=== PATIENT | female | born 1995 | race Caucasian/White ===

== ENCOUNTER 2024-10-15 07:30 | Inpatient (IN) ==
--- NOTE | 2024-10-04 09:14 | Anesthesiology Consultation ---
Date of Service October 04, 2024 Assessment & Plan (1) Encounter for pre-operative examination: - Per counter checker on 10/04/24: No known infectious disease contacts, current infectious disease symptoms in past 10 days or COVID positive test result in the past 30 days. Chart Review Chart Review: entry processor initiated History Surgery Operation Date: 10/15/24 07:30 Proposed Procedures p Section (Delivery of Baby Through Abdominal Incision) - Lynne Ogden MD, FACOG Height/Weight Height: 5 ft 5 in Weight: 76.204 kg Allergies Allergy/AdvReac Type Severity Reaction Status Date / Time Penicillins Allergy Intermediate Rash Verified 10/04/24 08:53 latex Allergy Mild RASH Verified 10/04/24 08:53 Medications Home Medications Medication Instructions Recorded Confirmed Last Taken prenat.vits,phi,jnk-hxoy-ysvqu 1 tab PO HS 11/08/21 10/04/24 04/08/23 acetone (urine) test (Ketone Urine #50 ea 08/10/24 09/28/24 Unknown Test strips) blood sugar diagnostic (OneTouch #150 ea 08/10/24 09/28/24 Unknown Verio test strips) blood-glucose meter (OneTouch #1 ea 08/10/24 09/28/24 Unknown Verio Reflect Meter) lancets 33 gauge (OneTouch Delica #150 ea 08/10/24 09/28/24 Unknown Plus Lancet) Past Medical History Medical History (Updated 10/04/24 @ 09:13 by Tati Connor PA-C) GDM (gestational diabetes mellitus) no meds, reports bs check 4 times per day - runs 100-120 Past Family History Family History Grandmother (Maternal) Breast cancer Grandfather (Paternal) Myocardial infarction Grandfather (Maternal) Alzheimer disease Father Heart aneurysm Other Coronary heart disease Past Surgical History Surgical History S/P section (03/2023) S/P wisdom tooth extraction Social History Smoking Status: Never smoker Do You Dip or Chew Tobacco: No Hx Alcohol Use: No Hx Substance Use: No substance use type: does not use
[2024-10-15] MEDS ORDERED: CALCIUM CARBONATE 500 MG CHEWABLE TAB PO PRN (08:45)
[2024-10-15] MEDS ORDERED: LIDOCAINE 1% LOCAL 20 ML VIAL INFIL PRN (08:45)
[2024-10-15] MEDS ORDERED: OXYTOCIN 30 UNITS/NSS 30 UNITS/500 ML BAG IV PRN ×2 (08:45→20:35)
[2024-10-15] MEDS: LACTATED RINGER'S 1,000 ML IV PRN (09:00)
[2024-10-15 09:09] LABS: Hematocrit (blood only) 34.8 % (37.0-47.0); Hemoglobin 11.5 g/dl (12.0-16.0); Mean Corpuscular Hemoglobin 29.2 pg (25.0-34.0); Mean Corpuscular Volume 88.3 fL (80.0-100.0); Mean Platelet Volume 12.2 fL (9.4-12.4); Platelet Count 157 K/uL (130-400); RDW Standard Deviation 45.4 fL (36.4-46.3); Red Blood Count 3.94 M/uL (4.20-5.40); White Blood Count 9.39 K/ul (4.8-10.8)
--- NOTE | 2024-10-15 09:20 | History & Physical Report ---
Date of Service October 15, 2024 Assessment & Plan (1) Gestational diabetes mellitus (GDM) affecting , antepartum: (2) Short interval between pregnancies affecting , antepartum: (3) Previous delivery affecting : (4) Encounter for supervision of normal intrauterine in multigravida, antepartum: Plan Pt is comfortable - Plan for , per pt request - Epidural if pt requests, anesthesiology following T&S ordered placed and consent signed. Admission and Anticipated Discharge Date Admission Date: October 15, 2024 History of Present Illness Chief Complaint: Induction Primary Care Provider: Ally Lozano MD Violeta is a 29 y/o female currently at40/6 WGA with an GILLIAN 10/09/24 as determined by LMP who is here for induction, . Her was complicated by GDM, diet controlled. Hep B non-immune. No reported contractions; regular movement; no fluid loss; no bloody show Had regular appointments with OB. OB Labs: Blood Type O Positive 03/08/24 Antibody Screen NEGATIVE 03/08/24 Hgb 12.4 g/dl (12.0-16.0) 07/20/24 Hct 37.3 % (37.0-47.0) 07/20/24 MCV 89.3 fL (80.0-100.0) 03/08/24 Plt Count 205 K/uL (130-400) 03/08/24 Rubella IgG Antibody Immune (Immune) 03/08/24 RPR Nonreactive (Nonreactive) 09/24/22 Treponema pallidum Ab Negative (Negative) 07/20/24 Hep Bs Antigen Negative (Negative) 03/08/24 Hep Bs Antigen NON-REACTIVE (NON-REACTIVE) 09/24/22 Hepatitis C Antibody Negative (Negative) 03/08/24 Hepatitis C Ab (EIA) NON-REACTIVE (NON-REACTIVE) 09/24/22 HIV 1&2 Ab/P24 Ag 4thGn Negative (Negative) 03/08/24 HIV (1&2) Ag & Ab Conf NON-REACTIVE (NON-REACTIVE) 09/24/22 Glucose 1 Hr 50 gm 160 mg/dl (70-130) H 07/20/24 OB Optional Labs: Chlamydia trachomatis RNA Not Detected (NotDetected) 03/08/24 Neisseria gonorrhoeae RNA Not Detected (NotDetected) 03/08/24 Labs Reviewed: Declines cf/sma/cfdna/quad screen--mln H.5 (today) Hct: 34.8 (today) WBC: 9.39 (today) Plt: 157 (today) GBS: neg Allergies Allergy/AdvReac Type Severity Reaction Status Date / Time Penicillins Allergy Intermediate Rash Verified 10/11/24 09:53 latex Allergy Mild RASH Verified 10/11/24 09:53 nickel AdvReac Redness of Verified 10/15/24 08:39 Skin Home Medications Medication Instructions Recorded Confirmed Type prenat.vits,phi,mwo-ajvj-kueoh 1 tab PO HS 11/08/21 10/15/24 History acetone (urine) test (Ketone Urine #50 ea 08/10/24 10/11/24 Rx Test strips) blood sugar diagnostic (OneTouch #150 ea 08/10/24 10/11/24 Rx Verio test strips) blood-glucose meter (OneTouch #1 ea 08/10/24 10/11/24 Rx Verio Reflect Meter) lancets 33 gauge (OneTouch Delica #150 ea 08/10/24 10/11/24 Rx Plus Lancet) Patient History Medical History GDM (gestational diabetes mellitus) no meds, reports bs check 4 times per day - runs 100-120 Surgical History S/P section (03/2023) S/P wisdom tooth extraction Family History Grandmother (Maternal) Breast cancer Grandfather (Paternal) Myocardial infarction Grandfather (Maternal) Alzheimer disease Father Heart aneurysm Other Coronary heart disease Social History Smoking Status: Never smoker Second Hand Exposure: No; Do You Dip or Chew Tobacco: No; Tobacco Cessation Education Requested by Patient: No Hx Alcohol Use: No Hx Substance Use: No Preferred Language: Hebrew Communication Ability: Effective Visual Impairment: Limited Anesthesiology Physician Required: No Beliefs That Will Affect Care: None marital status: marital status details: Levi (29) [phone] Current Living Situation: Spouse and Family Current Living Situation Comment: - Levi, 1 1/2 year old son Tao; 2 dogs and 1 cat current occupational status: employed 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 Denies breast pain. Denies dysuria. Denies headache or changes in vision. Physical Exam Physical Exam: General: Alert, oriented. No acute distress. Cardiac: Regular rate and rhythm, no murmurs/rubs/gallops. Respiratory: Clear to auscultation bilaterally a/p, no wheezes/rales/rhonchi. No increased work of breathing. Symmetrical chest rise. No respiratory distress. Abdomen: Gravid; moderately variable FHTs; Position: vertex Pelvic: Dilation 4-5cm; Effacement 80%; Station -[address] Hooker Lower Extremities: No lower extremity edema or swelling. No deep calf pain. Nori's negative bilaterally Results & Data Vital Signs (Past 12 Hours) Vital Signs Temp Pulse Resp BP 10/15/24 09:07 78 102/59 L 10/15/24 09:06 16 10/15/24 09:06 36.5 C 78 16 102/59 L 10/15/24 08:13 36.6 C 126 H 18 118/70 10/15/24 07:54 126 H 118/70 Code Status & VTE Plan VTE Prophylaxis Plan VTE Prophylaxis will be ordered: No Monitoring External Monitor External FHT and external uterine monitors used; Category 1 tracing; moderate FHT variability. Tocodynamometer Intermittent contractions Supervising Physician Co-Signing Physician Notes Resident Physician Supervision Note: I interviewed and examined the patient. Discussed with Dr. Mcmillan and agree with findings and plan as documented in the note. Any exceptions or clarifications are listed here: [None] Documented By: Leonor Rios MD, FACOG Resident Activity Tracking Resident Involvement: Resident Care Provided Care Provided: Adult Hospital Medicine
[2024-10-15] MEDS: OXYTOCIN 30 UNITS/NSS 30 UNITS/500 ML BAG IV PRN (13:48)
--- NOTE | 2024-10-15 14:39 | Labor Progress Brief Note ---
Date of Service October 15, 2024 Subjective Reason For Note: Routine Evaluation contractions getting more painful but still only 7-10 minutes apart cervix exam- 5-6cm/100/-2 FHT category 1 will start pitocin augmentation to get a better contraction pattern Assessment & Plan Admission and Anticipated Discharge Date Admission Date: October 15, 2024 Results & Data Vital Signs (Past 12 Hours) Vital Signs Temp Pulse Resp BP 10/15/24 14:10 85 126/89 10/15/24 14:00 18 10/15/24 14:00 18 10/15/24 13:30 18 10/15/24 13:30 18 10/15/24 13:19 78 101/69 10/15/24 13:17 16 10/15/24 13:17 97.7 F 78 16 101/69 10/15/24 12:17 16 10/15/24 12:17 97.5 F L 66 16 95/52 L 10/15/24 10:06 82 10/15/24 10:06 102/63 10/15/24 10:06 98.2 F 82 18 102/63 10/15/24 09:07 78 102/59 L 10/15/24 09:06 16 10/15/24 09:06 97.7 F 78 16 102/59 L 10/15/24 08:13 97.9 F 126 H 18 118/70 10/15/24 07:54 126 H 118/70 Coding Level of Care Code 72179 SUB INP/OBS CARE 08/11MIN
[2024-10-15] MEDS ORDERED: LIDOCAINE 2% MPF LOCAL 5 ML VIAL EPI PRN (16:04)
[2024-10-15] MEDS ORDERED: NALOXONE HCL 0.4 MG/1 ML VIAL/CARP IV PRN (16:04)
[2024-10-15] MEDS ORDERED: BUPIVACAINE 0.25% PF 30 ML VIAL EPI PRN (16:04)
[2024-10-15] MEDS ORDERED: ROPIVACAINE 0.5% PF 5 MG/ML 20 ML VIAL EPI PRN (16:04)
[2024-10-15] MEDS ORDERED: fentaNYL citrate PF 100 MCG/2 ML VIAL EPI PRN (16:04)
[2024-10-15] MEDS ORDERED: SODIUM CHLORIDE 0.9% PF INJ 10 ML VIAL EPI PRN (16:04)
[2024-10-15] MEDS ORDERED: fentANYL 2 MCG/ML BUPIVacaine 0.125%-NSS 100ML BAG EPI PRN (16:04)
[2024-10-15] MEDS ORDERED: diphenhydrAMINE 50 MG/ML VIAL IV PRN (16:04)
[2024-10-15] MEDS ORDERED: ePHEDrine sulfate 50 MG/ML AMP IV PRN (16:04)
[2024-10-15] MEDS ORDERED: NALBUPHINE HCL INJ 10 MG/ML AMP IV PRN (16:04)
[2024-10-15] MEDS ORDERED: ONDANSETRON INJ 2 MG/ML 2 ML VIAL IV PRN (16:04)
[2024-10-15] MEDS ORDERED: NALOXONE HCL 1 MG in SODIUM CHLORIDE 0.9% 1,000 ML IV PRN (16:04)
--- NOTE | 2024-10-15 16:04 | Anesthesiology Consultation ---
Date of Service October 15, 2024 Assessment & Plan ASA ASA3 Proposed Anesthesia Anesthesia Type: Labor Epidural Risk / Benefits Reviewed With: PT / POA / Parent / Guardian, Accepts Plan and Informed Consent Obtained History Surgery Operation Date: 10/15/24 11:10 Proposed Procedures p Section (Delivery of Baby Through Abdominal Incision) - Lynne Ogden MD, FACOG Height/Weight Height: 5 ft 5 in Weight: 77.564 kg Allergies Allergy/AdvReac Type Severity Reaction Status Date / Time Penicillins Allergy Intermediate Rash Verified 10/11/24 09:53 latex Allergy Mild RASH Verified 10/11/24 09:53 nickel AdvReac Redness of Verified 10/15/24 08:39 Skin Medications Home Medications Medication Instructions Recorded Confirmed Last Taken prenat.vits,phi,gyy-yvrj-wozbs 1 tab PO HS 11/08/21 10/15/24 10/12/24 21:00 acetone (urine) test (Ketone Urine #50 ea 08/10/24 10/11/24 Unknown Test strips) blood sugar diagnostic (OneTouch #150 ea 08/10/24 10/11/24 Unknown Verio test strips) blood-glucose meter (OneTouch #1 ea 08/10/24 10/11/24 Unknown Verio Reflect Meter) lancets 33 gauge (OneTouch Delica #150 ea 08/10/24 10/11/24 Unknown Plus Lancet) Active Medications Generic Name Dose Route Start Last Admin Trade Name Freq PRN Reason Stop Dose Admin Lactated Ringer's 1,000 mls @ 125 mls/hr 10/15/24 08:45 10/15/24 16:41 Lr IV 10/16/24 08:44 Infused .Q8H PRN Infusion L&D Protocol Protocol Oxytocin 30 units in 500 mls @ 9 mls/hr 10/15/24 08:48 10/15/24 17:05 Pitocin 30 Units/Nss IV 10/17/24 08:47 0.54 units/hr .Q24H PRN 9 mls/hr Labor Induction/Augmentation Titration Protocol 0.54 UNITS/HR Past Medical History Medical History GDM (gestational diabetes mellitus) no meds, reports bs check 4 times per day - runs 100-120 Exercise / Class Metabolic Activity II 4-5 Yardwork/Stairs/Walk up hill Past Family History Family History Grandmother (Maternal) Breast cancer Grandfather (Paternal) Myocardial infarction Grandfather (Maternal) Alzheimer disease Father Heart aneurysm Other Coronary heart disease Past Surgical History Surgical History S/P section (03/2023) S/P wisdom tooth extraction Past Anesthesia History No Hx of Anesthesia Complications and No Family Hx of Anesthesia Complications History of PONV No Hx of PONV and No Hx of Motion Sickness Social History Smoking Status: Never smoker Do You Dip or Chew Tobacco: No Hx Alcohol Use: No Hx Substance Use: No substance use type: does not use Review of Systems denies fever/cough/ colds/ chest pain/ SOB/ BERHANE denies BERHANE Physical Exam Vital Signs Last Vital Signs Temp 36.9 C 10/15/24 17:02 Pulse 69 10/15/24 17:12 Resp 16 10/15/24 17:02 BP 118/59 L 10/15/24 17:10 Pulse Ox 100 10/15/24 17:12 ENMT Mouth: no TMJ abnormality and no dentition abnormality Thyromental Distance: > or= 3.5 Finger Breadths Mallampati Class: II Neck neck extension not limited Respiratory normal respiratory effort; no respiratory distress Auscultation: lungs clear to auscultation bilaterally Cardiovascular Rate/Rhythm: regular rate and regular rhythm Neurologic moves all extremities Psychiatric Orientation: alert and oriented x 3 Testing Laboratory Results 10/15/24 08:52 Blood Type O Positive 10/15/24 08:52 Antibody Screen NEGATIVE 10/15/24 08:52 10/15/24 10/15/24 10/15/24 16:07 14:07 12:21 POC Glucose 94 105 H 75 10/15/24 10/15/24 10/15/24 12:20 10:05 08:01 POC Glucose 68 L* 104 H 169 H
[2024-10-15] MEDS: fentaNYL citrate PF 100 MCG/2 ML VIAL ONE (16:41)
[2024-10-15] MEDS: fentANYL 2 MCG/ML BUPIVacaine 0.125%-NSS 100ML BAG ONE (16:48)
[2024-10-15] MEDS: LIDOCAINE 2%/EPINEPHRINE 1:200,000 20 ML PF ONE (16:49)
[2024-10-15] MEDS: BUPIVACAINE 0.25% PF 30 ML VIAL ONE (16:50)
[2024-10-15] MEDS: LIDOCAINE 2%/EPINEPHRINE 1:200,000 20 ML PF EPI STA (16:51)
[2024-10-15] MEDS: fentaNYL citrate PF 100 MCG/2 ML VIAL EPI STA (16:51)
[2024-10-15] MEDS: BUPIVACAINE 0.25% PF 30 ML VIAL EPI STA (16:51)
[2024-10-15] MEDS: SODIUM CHLORIDE 0.9% PF INJ 10 ML VIAL EPI STA (16:51)
[2024-10-15] MEDS ORDERED: oxyCODONE/ACETAMINOPHEN 5mg/325mg TAB PO PRN (20:35)
[2024-10-15] MEDS ORDERED: ACETAMINOPHEN 325 MG TAB PO PRN (20:35)
[2024-10-15] MEDS ORDERED: bisacodyL 10 MG SUPP PR PRN (20:35)
[2024-10-15] MEDS ORDERED: HYDROCORTISONE ACETATE 25 MG SUPP PR PRN (20:35)
--- NOTE | 2024-10-15 20:42 | Delivery Summary ---
Vaginal Delivery Summary Date of Service October 15, 2024 Vaginal Delivery Summary and 1st Degree LAC Patient is a 29-year-old 2 para 1-0-0-1 female EDC of 10/09/2024 who presented to labor and delivery for induction of labor with favorable cervix. Prior delivery was by section for nonreassuring heart rate pattern. Membranes ruptured for clear fluid she did require Pitocin augmentation of her contractions. Pitocin was at 11 milliunits at delivery. She requested epidural analgesia which was effective. She progressed to full dilation with the urge to push. She pushed effectively over intact perineum for delivery of a viable male . After the head was delivered there was a cord around the anterior shoulder. The anterior shoulder also felt tight and hyperflexion of the hips and suprapubic pressure resulted in delivering the anterior shoulder as well as the left arm which delivered shortly after the shoulder. Rest of the then delivered easily and was placed on mother's abdomen for further tension and drying. There was terminal bradycardia during the last 2 pushes and the cord was therefore clamped and cut so that he could be evaluated better on the baby bed. Once he was moved to the warmer, he began to cry spontaneously and moving all 4 limbs. After cord blood was obtained, the placenta was expressed intact with a three-vessel cord. bleeding was controlled with dilute Pitocin and fundal massage. A first-degree perineal laceration and left labial first-degree lacerations were repaired with 2-0 chromic in usual fashion. QBL was 226 mL. Mother and infant were doing well after delivery. [facility] Vaginal Delivery Charge Delivery Type Details: and 1st Degree LAC
--- NOTE | 2024-10-15 20:51 | Anesthesia Procedure Note ---
Date of Service October 15, 2024 Anesthesia Post Epidural Note Vital Signs Vital Signs: Temp Pulse Resp BP Pulse Ox 36.7 C 75 18 109/66 100 10/15/24 19:01 10/15/24 20:43 10/15/24 20:28 10/15/24 20:43 10/15/24 20:27 Pain Intensity Abdomen: Pain Intensity: 0 Notes Mental Status: alert / awake / arousable and participated in evaluation Nausea / Vomiting: adequately controlled Pain: adequately controlled Airway Patency, RR, SpO2: stable & adequate BP & HR: stable & adequate Hydration State: stable & adequate Neuraxial Anesthesia: sensory block is resolving Anesthetic Complications: no major complications apparent and Pt Satisfied with anesthetic care Epidural: Removed without complications and With tip intact
[2024-10-15] MEDS: SODIUM CHLORIDE 0.9% PF INJ 10 ML VIAL ONE (20:53)
[2024-10-15] MEDS: ePHEDrine sulfate 50 MG/ML AMP ONE (20:53)
[2024-10-15] MEDS: DOCUSATE SODIUM 100 MG CAP PO SCH (22:08)
[2024-10-15] MEDS: DIPHTHER/TETAN/PERTUS Vaccine (Tdap, Adol/Adult) 0.5mL IM ONE (22:08)
[2024-10-15] MEDS: BENZOCAINE 20% SPRY 85 APPLN/85 GM CAN EXT PRN (22:08)
[2024-10-15] MEDS: IBUPROFEN 600 MG TAB PO PRN (22:08)
--- NOTE | 2024-10-16 06:21 | Obstetrical Progress Note ---
Date of Service October 16, 2024 Assessment & Plan (1) Gestational diabetes mellitus (GDM) affecting , antepartum: (2) Short interval between pregnancies affecting , antepartum: (3) Previous delivery affecting : (4) Encounter for supervision of normal intrauterine in multigravida, antepartum: Plan Pt is comfortable - pain control with tylenol, ibuprofen - Encourage ambulation and breast feeding - Discharge to home today or /2 Admission and Anticipated Discharge Date Admission Date: October 15, 2024 Supervising Physician Co-Signing Physician Notes Resident Physician Supervision Note: I interviewed and examined the patient. Discussed with Dr. Mcmillan and agree with findings and plan as documented in the note. Any exceptions or clarifications are listed here: [None] Documented By: Leonor Rios MD, FACOG Subjective Pt is 29 yo post- day 1 s/p at 39w2d Ambulation:In room Voiding:voiding normally Passing gas: yes BM: no Diet tolerance:regular diet Lochia:bloody, no clots Feeding type: breast Current pain level: 1-3 /10 improved with ibuprofen Resting comfortably this morning in NAD. Denies ALDRIDGE, CP, SOB, N/V/D, LE pain/swelling. Review of Systems Review of Systems: As per HPI Physical Exam Constitutional: WD/WN, vitals as above Respiratory: normal respiratory effort, lungs clear to auscultation Gastrointestinal (Abdomen): normal bowel sounds, soft, nontender, no hepatosplenomegaly Uterine fundus firm and at level of umbilicus Neurologic: PERRL, EOMI, accommodation nl, no face palsy, no dysarthria Moving all 4 extremities on command Psychiatric: A+Ox3, euthymic affect Results & Data Vital Signs (Past 12 Hours) Vital Signs Temp Pulse Pulse Resp BP BP Pulse Ox 10/16/24 03:38 36.8 C 78 20 97/61 L 97 10/15/24 23:15 36.7 C 82 18 90/64 L 98 10/15/24 23:15 10/15/24 22:29 36.8 C 18 10/15/24 22:29 95 H 93/60 L 10/15/24 22:28 92 H 88/54 L 10/15/24 22:13 85 93/58 L 10/15/24 21:58 16 10/15/24 21:58 84 97/55 L 10/15/24 21:43 88 102/60 10/15/24 21:28 16 10/15/24 21:28 84 98/62 L 10/15/24 21:13 16 10/15/24 21:13 87 101/60 10/15/24 20:58 18 10/15/24 20:58 71 100/60 10/15/24 20:43 16 10/15/24 20:43 75 109/66 10/15/24 20:28 18 10/15/24 20:28 81 104/55 L 10/15/24 20:27 77 100 10/15/24 20:22 83 100 10/15/24 20:17 88 100 10/15/24 20:12 86 100 10/15/24 20:07 111 H 95 10/15/24 20:04 86 84 L 10/15/24 20:02 76 100 10/15/24 20:00 78 110/73 10/15/24 19:59 84 88 L 10/15/24 19:57 83 100 10/15/24 19:52 69 100 10/15/24 19:47 60 100 10/15/24 19:44 63 123/73 10/15/24 19:42 58 L 100 10/15/24 19:40 65 94 10/15/24 19:37 64 100 10/15/24 19:32 69 100 10/15/24 19:29 70 106/64 10/15/24 19:27 77 100 10/15/24 19:22 70 100 10/15/24 19:17 66 100 10/15/24 19:14 67 104/68 10/15/24 19:12 70 100 10/15/24 19:07 73 100 10/15/24 19:02 62 100 10/15/24 19:01 36.7 C 18 10/15/24 19:00 71 104/66 10/15/24 18:57 59 L 100 10/15/24 18:52 66 100 10/15/24 18:47 69 100 10/15/24 18:44 81 10/15/24 18:44 76 93/65 L 91 10/15/24 18:42 88 100 10/15/24 18:37 76 100 10/15/24 18:32 100 10/15/24 18:32 65 10/15/24 18:32 67 107/56 L 10/15/24 18:29 79 81/50 L 10/15/24 18:27 77 100 10/15/24 18:22 71 100 O2 Del Method 10/16/24 03:38 Room Air 10/15/24 23:15 Room Air 10/15/24 23:15 Room Air 10/15/24 22:29 10/15/24 22:29 10/15/24 22:28 10/15/24 22:13 10/15/24 21:58 10/15/24 21:58 10/15/24 21:43 10/15/24 21:28 10/15/24 21:28 10/15/24 21:13 10/15/24 21:13 10/15/24 20:58 10/15/24 20:58 10/15/24 20:43 10/15/24 20:43 10/15/24 20:28 10/15/24 20:28 10/15/24 20:27 10/15/24 20:22 10/15/24 20:17 10/15/24 20:12 10/15/24 20:07 10/15/24 20:04 10/15/24 20:02 10/15/24 20:00 10/15/24 19:59 10/15/24 19:57 10/15/24 19:52 10/15/24 19:47 10/15/24 19:44 10/15/24 19:42 10/15/24 19:40 10/15/24 19:37 10/15/24 19:32 10/15/24 19:29 10/15/24 19:27 10/15/24 19:22 10/15/24 19:17 10/15/24 19:14 10/15/24 19:12 10/15/24 19:07 10/15/24 19:02 10/15/24 19:01 10/15/24 19:00 10/15/24 18:57 10/15/24 18:52 10/15/24 18:47 10/15/24 18:44 10/15/24 18:44 10/15/24 18:42 10/15/24 18:37 10/15/24 18:32 10/15/24 18:32 10/15/24 18:32 10/15/24 18:29 10/15/24 18:27 10/15/24 18:22 Resident Activity Tracking Resident Involvement: Resident Care Provided Care Provided: Adult Hospital Medicine
[2024-10-16 06:47] LABS: Hematocrit (blood only) 29.8 % (37.0-47.0); Hemoglobin 9.8 g/dl (12.0-16.0); Mean Corpuscular Hgb Conc 32.9 g/dL (32.0-36.0); Mean Corpuscular Volume 88.2 fL (80.0-100.0); Mean Platelet Volume 12.3 fL (9.4-12.4); Platelet Count 148 K/uL (130-400); RDW Coefficient of Variation 14.2 % (11.5-14.5); RDW Standard Deviation 45.2 fL (36.4-46.3); Red Blood Count 3.38 M/uL (4.20-5.40); White Blood Count 10.62 K/ul (4.8-10.8)
[2024-10-16] MEDS: PRENATAL VITAMIN 1 TAB PO SCH (07:32)
[2024-10-16 08:45] VITALS: RESP 16
[2024-10-16] MEDS: ACETAMINOPHEN 325 MG TAB PO PRN (12:00)
[2024-10-16 15:55] VITALS: BP 96/64; PULSE 77; TEMP 97.9; O2SAT 97
[2024-10-16] MEDS ORDERED: bisacodyL 5 MG TABEC PO SCH (20:00)
== END 2024-10-16 21:18 | disposition home or self-care (01) | DRG 807 ==
LOC: EDSTATUS 07:30 → 4S1 07:36 → 4E2 23:11